=== PATIENT | male | born 1980 | race African-American/Black ===

== ENCOUNTER 2022-04-06 12:42 | Outpatient (REF) | payer BC, SELFPAY ==
[2022-04-06 15:02] LABS: MANUAL DIFF FLAG NO
[2022-04-06 15:08] LABS: Basophils Absolute Auto 0.1 X10*3/uL (0.0-0.2); Basophils Percent Auto 0.8 % (0-2); Eosinophils Absolute Auto 0.2 X10*3/uL (0.0-0.4); Eosinophils Percent Auto 2.6 % (0-4); Hematocrit 39.3 % (42.0-52.0); Hemoglobin 13.2 g/dl (14.0-18.0); Imm Gran Abs Auto 0.02 X10*3/uL (0.00-0.03); Imm Gran Pct Auto 0.3 % (0.0-0.4); Lymphocytes Absolute Auto 1.8 X10*3/uL (1.2-4.9); Lymphocytes Percent Auto 28.1 % (20-40); Mean Corpuscular HGB Conc 33.6 g/dl (31.0-36.0); Mean Corpuscular Hemoglobin 32.6 pg (27.0-33.0); Mean Platelet Volume 9.5 fL (9.4-12.4); Monocytes Absolute Auto 0.7 X10*3/uL (0.1-1.2); Monocytes Percent Auto 11.3 % (2-11); Neutrophils Absolute Auto 3.6 x10*3/uL (2.0-8.3); Neutrophils Percent Auto 56.9 % (45-73); Platelet Count 322 X10*3/uL (160-400); Red Blood Count 4.05 X10*6/uL (4.60-5.80); Red Cell Distribution Width 10.8 % (11.0-16.0); White Blood Count 6.3 X10*3/uL (4.8-10.8)
[2022-04-06 15:25] LABS: Alanine Aminotransferase 27 U/L (0-40); Albumin Level 4.5 g/dL (3.5-5.0); Alkaline Phosphatase 53 U/L (39-117); Anion Gap 16 (12-20); Aspartate Amino Transferase 29 U/L (5-37); Bilirubin Total 0.7 mg/dL (0.0-1.0); Blood Urea Nitrogen 13 mg/dL (9-16); Calcium 9.5 mg/dL (8.4-10.2); Carbon Dioxide 27 mmol/L (22-29); Chloride 102 mmol/L (96-108); Estimated Glomerular Filt Rate > 60; Glucose Random 88 mg/dL (60-115); Potassium 4.3 mmol/L (3.3-5.1); Sodium 141 mmol/L (135-145); Total Protein 7.7 g/dL (6.5-8.0)
== END 2022-04-06 12:43 | disposition home or self-care (01) ==
LOC: HO.HMGCLDS 12:42
PROVIDERS: PCP Internal Medicine; Visit Provider Physician Assistant
DX: R59.1 Generalized enlarged lymph nodes (principal)
CPT/HCPCS: 36415; 80053; 85025

== ENCOUNTER 2024-06-07 12:47 | Outpatient (AMB) | payer BC, SELFPAY ==
[2024-06-07 12:51] VITALS: BP 112/80; PULSE 82; TEMP 36.9; O2SAT 98; BMI 26.0
--- NOTE | 2024-06-07 12:51 | MHC.OFFWIV ---
Intake Vital Signs 06/07/24 12:51 Height 5 ft 8 in Weight 171 lb BMI 26.0 BP 112/80 Blood Pressure Location Rt brachial Position Sitting Pulse 82 Pulse Source Pulse Oximeter Temp 98.5 F Temp Source Oral Pulse Oximetry (%) 98 Intake Visit Reasons: EP LT side face swelling Intake Note: pt is here for left side face swelling Patient Tobacco Use Status: Never used Tobacco Accompanied by: Self / Same As Patient Allergies No Known Allergies Allergy (Verified 06/07/24 12:51) Do you need a note to return to daycare/school/sports/work: No HPI HPI Comments History of Present Illness Details Patient is a 43yo M who presents with L facial edema Onset this am No trauma or injury Had chicken before bed and woke up with L sided facial swelling No new foods or trauma No airway compromise and said is able to eat and drink well without tightness Denies SOB, CP, ST, ear pain or tooth pain Said this has happened before from [facility] Did not try to help his symptoms today with anything Denies fever or chills No other extremity weakness No other complaints PFSH Social History Patient Tobacco Use Status: Never used Tobacco Review of Systems Const Denies chills, Denies fever(s) and Denies headache(s) Eyes Denies change in vision ENT Denies otalgia, Denies headache(s) and Denies nose pain Card Denies chest pain Resp Denies cough Skin/Breast Denies erythema and Reports other (L sided facial edema) Neuro Denies headache(s) Physical Exam Vital Signs: Last Vital Signs Temp 98.5 F 06/07/24 12:51 Pulse 82 06/07/24 12:51 BP 112/80 06/07/24 12:51 Pulse Ox 98 06/07/24 12:51 BMI result Body Mass Index 26.0 General: Non-toxic, NAD. Speaking full sentences. Skin: Warm dry throughout. No facial or neck erythema or warmth + edema noted over L zygomatic arch and into L cheek. No pre-auricular edema noted. No neck edema noted Eye: EOMI, PERRL Lymph: No lymphadenopathy HENT: Airway patent. Uvula midline. No pharyngeal erythema or edema. No [employer]. No tongue edema. No deviation. Normal rise and fall of palate. No submandibular edema or induration. + poor dentition and multiple dental caries bilateral upper and lower gums without visualized or palpable oral abscess. Bilateral canals clear. TM non-erythematous, non-bulging. No TM perforation or hemotympanum noted. Respiratory: No respiratory distress Cardiac: RRR. No murmur MSK: Full ROM extremities. Neurology: A/O x 3. CN 2-12 grossly intact. Pt able to raise eyebrows with equal forehead wrinkle bilaterally. Able to smile, puff out cheeks, frown and open/close eyes. No aphasia. 5/5 under ground miner strength and strength with lower extremity testing. Gait without abnormality Psych: Good mood and affect Assessment & Plan Assessment & Plan (1) Left facial swelling: Code(s): R22.0 - Localized swelling, mass and lump, head Plan: Pt seen and evaluated No facial droop on exam No identified abscess or source of infection but concern for edema secondary to dental caries and poor dentition No sublingual edema or concern ludwigs Airway patent and no0 SOB Discussed head elevation, ibuprofen, ice, Augmentin ER s/s discussed and pt has no questions at time of discharge Medications: New amoxicillin-pot clavulanate 875-125 mg 1 tab PO BID 20 tabs 0RF Coding Level of Care Code Est Pt Level 3 (86135) Diagnoses Left facial swelling R22.0
== END 2024-06-07 13:34 | disposition home or self-care (01) ==
PROVIDERS: PCP Internal Medicine; Visit Provider Physician Assistant
DX: R22.0 Localized swelling, mass and lump, head (principal)